=== PATIENT | female | born 1955 | race Caucasian/White ===

== ENCOUNTER 2018-01-02 20:57 | Emergency (ER) | payer OTHER ==
[~2018-01-02] VITALS: Ht 154.9 cm; Wt 62.7 kg
[2018-01-02 21:27] LABS: BASOPHILS % (AUTO) 0.3 % (0-1); EOSINOPHILS # (AUTO) 0.4 X10'3 (0-0.9); EOSINOPHILS % (AUTO) 4.7 % (0-6); HEMATOCRIT 43.6 % (35.0-45.0); HEMOGLOBIN 14.9 g/dl (12.0-16.0); LYMPHOCYTES # (AUTO) 2.9 X10'3 (1.1-4.8); LYMPHOCYTES % (AUTO) 35.4 % (21-51); MEAN CORPUSCULAR HEMOGLOBIN 29.7 PG (27.0-31.0); MEAN CORPUSCULAR HGB CONC 34.2 % (33.0-36.5); MEAN CORPUSCULAR VOLUME 86.8 FL (78-98); MEAN PLATELET VOLUME 8.7 FL (7.4-10.4); MONOCYTES # (AUTO) 0.7 X10'3 (0-0.9); MONOCYTES % (AUTO) 8.2 % (2-12); NEUTROPHILS # (AUTO) 4.1 X10'3 (1.8-7.7); NEUTROPHILS % (AUTO) 51.4 % (42-75); PLATELET COUNT 255 X10'3 (140-440); RED BLOOD COUNT 5.02 X10'6 (4.20-5.60); RED CELL DISTRIBUTION WIDTH 14.2 % (11.5-14.5); WHITE BLOOD COUNT 8.1 X10'3 (4.5-11.0)
[2018-01-02 21:34] LABS: PARTIAL THROMBOPLASTIN TIME 25 SECONDS (22-32)
[2018-01-02 21:39] LABS: ALANINE AMINOTRANSFERASE 28 U/L (12-78); ALBUMIN 4.5 G/DL (3.4-5.0); ALBUMIN/GLOBULIN RATIO 1.3 (1.1-1.5); ALKALINE PHOSPHATASE 97 IU/L (46-116); ANION GAP 10 (8-16); ASPARTATE AMINO TRANSFERASE 14 U/L (10-37); BILIRUBIN,TOTAL 0.2 MG/DL (0.1-1.0); BLOOD UREA NITROGEN 18 MG/DL (7-18); BUN/CREATININE RATIO 18.4 (6.6-38.0); CALCIUM 9.9 MG/DL (8.5-10.1); CHLORIDE 101 MMOL/L (99-107); CREATININE 0.98 MG/DL (0.40-0.90); GLUCOSE 101 MG/DL (70-104); POTASSIUM 3.6 MMOL/L (3.5-5.1); SODIUM 136 MMOL/L (135-145); TOTAL CARBON DIOXIDE 25.4 MMOL/L (24-32); TOTAL PROTEIN 7.9 G/DL (6.4-8.2); eGFR 57 ML/MIN
[2018-01-02 21:42] LABS: TROPONIN I < 0.04 NG/ML (0.0-0.05)
[2018-01-02 22:28] LABS: URINE AMPHETAMINE SCREEN NEGATIVE (Neg); URINE BARBITUATE SCREEN POSITIVE (Neg); URINE BENZODIAZEPINES SCREEN NEGATIVE (Neg); URINE CANNABINOID SCREEN POSITIVE (Neg); URINE COCAINE SCREEN NEGATIVE (Neg); URINE METHADONE SCREEN NEGATIVE (Neg); URINE OPIATE SCREEN NEGATIVE (Neg); URINE PHENCYCLIDINE SCREEN NEGATIVE (Neg)
[2018-01-02 22:33] LABS: CLARITY,URINE CLEAR (Clear); COLOR,URINE YELLOW (Yellow); GLUCOSE, URINE NEGATIVE (Neg); KETONES,URINE TRACE mg/dl (Neg); LEUKOCYTE ESTERASE ,URINE MODERATE (Neg); NITRITES, URINE NEGATIVE (Neg); OCCULT BLOOD,URINE TRACE-INTACT (Neg); PROTEIN,URINE NEGATIVE (Neg); UROBILINOGEN,URINE 0.2 E.U/dL (0.2-1.0)
[2018-01-02 22:34] LABS: UA COLLECTION TYPE VOIDED
[2018-01-02] MEDS ORDERED: LORazepam 2 mg/ml vial IV ONE (22:35)
[2018-01-02 22:40] LABS: BACTERIA,URINE FEW /HPF (Neg); RBC,URINE NONE SEEN /HPF (0-2); SQUAMOUS EPITHELIAL CELL,UR FEW /LPF (FEW)
[2018-01-02 22:53] LABS: CREATINE KINASE 119 U/L (26-192)
[2018-01-02] MEDS ORDERED: LIDOcaine 1% (10mg/ml) 5ml syringe IV ONE ×2 (22:55→23:15)
[2018-01-02] MEDS ORDERED: LIDOcaine 1% 30ml preserv. free vial IJ STA (23:12)
[2018-01-02] MEDS ORDERED: LIDOcaine 1%/PF 5ML 10 MG/ML VIAL IV ONE (23:15)
[2018-01-02] MEDS ORDERED: ondansetron/PF 4mg/2ml inj IV ONE (23:35)
[2018-01-02] MEDS ORDERED: morphine 4 MG/ML inj SYRINge IV ONE (23:35)
[2018-01-03] MEDS ORDERED: LORA-269 PO (00:06)
[2018-01-03] MEDS ORDERED: ondansetron 4mg rapidly disintigrating tab PO ONE (00:10)
[2018-01-03 00:29] VITALS: BP 176/96
== END 2018-01-03 01:07 | disposition home or self-care (01) ==
LOC: ER 20:58
DX: F90.9 Attention-deficit hyperactivity disorder, unspecified type (principal); G25.9 Extrapyramidal and movement disorder, unspecified; Z86.73 Personal history of transient ischemic attack (TIA), and cerebral infarction without residual deficits; Z79.899 Other long term (current) drug therapy
CPT/HCPCS: 36415; 62270; 70450; 71045; 80053; 80305; 81001; 82550; 82948; 84443; 84484; 85025; 85610; 85651; 85730; 87077; 87088; 87186; 93005; 96374; 96375; 99285; J2001; J2060; J2270; J2405; J3490